=== PATIENT | female | born 1950 | race Caucasian/White ===

== ENCOUNTER 2017-12-26 11:36 | Emergency (ER) | payer MEDICARE, MEDICAID ==
[~2017-12-26] VITALS: Ht 162.6 cm; Wt 85.5 kg
[~2017-12-26 11:36] MED LIST: CLOT15CR74 TP; FLUO15OI15 TP; METH4TAB3 PO
[2017-12-26 11:48] VITALS: BP 127/75
[2017-12-26] MEDS ORDERED: PRED10TA23 PO (11:54)
== END 2017-12-26 12:11 | disposition home or self-care (01) ==
LOC: ER 11:37
DX: L23.7 Allergic contact dermatitis due to plants, except food (principal); I10 Essential (primary) hypertension; K21.9 Gastro-esophageal reflux disease without esophagitis; G89.29 Other chronic pain; Z60.2 Problems related to living alone; Z88.0 Allergy status to penicillin; Z79.899 Other long term (current) drug therapy
CPT/HCPCS: 99283